=== PATIENT | female | born 1985 | race African-American/Black ===

== ENCOUNTER 2018-11-21 09:46 | Emergency (ER) | payer SELFPAY ==
[~2018-11-21] VITALS: Ht 177.8 cm; Wt 86.0 kg
[2018-11-21] MEDS ORDERED: SODIUM CHLORIDE 0.9% 1,000 ML IV ONE (10:15)
[2018-11-21 12:06] LABS: BASOPHILS % 0.1 % (0.0-2.0); HEMATOCRIT. 33.9 % (36.0-48.0); HEMOGLOBIN. 11.3 g/dL (12.0-16.0); LYMPHOCYTES % 7.5 % (20.0-50.0); MEAN CORPUSCULAR HEMOGLOBIN 27.2 pg (28.0-32.0); MEAN CORPUSCULAR VOLUME 81.5 fL (81.0-99.0); MEAN PLATELET VOLUME 8.5 fl (7.4-10.4); MONOCYTES % 6.7 % (2.0-8.0); NEUTROPHILS % 85.7 % (40.0-76.0); PLATELET 211 x1000/uL (130-400); RED BLOOD CELL COUNT 4.16 mill/uL (4.2-5.4); RED CELL DISTRIBUTION WIDTH 17.4 % (11.6-14.6)
[2018-11-21 12:13] LABS: CHLORIDE 98 mEq/L (98-107)
[2018-11-21 12:22] LABS: INR 1.2; PROTHROMBIN TIME 12.4 sec (9.1-11.1)
[2018-11-21 14:23] LABS: CLARITY URINE CLEAR (CLEAR); COLOR URINE YELLOW (YELLOW); KETONES URINE NEGATIVE (NEGATIVE); LEUKOCYTE ESTERASE URINE NEGATIVE (NEGATIVE); NITRITE URINE NEGATIVE (NEGATIVE); OCCULT BLOOD URINE NEGATIVE (NEGATIVE); PH URINE 6.5 (4.5-8.0); PROTEIN URINE TRACE (NEGATIVE); SPECIFIC GRAVITY URINE 1.011 (1.005-1.030); UROBILINOGEN URINE 0.2 E.U./dL (0.2-1.0)
[2018-11-21 15:00] VITALS: BP 112/66
== END 2018-11-21 15:00 | disposition home or self-care (01) ==
LOC: ER 09:46
DX: R55 Syncope and collapse (principal); S09.90XA Unspecified injury of head, initial encounter; R05 Cough; I51.7 Cardiomegaly; W01.0XXA Fall on same level from slipping, tripping and stumbling without subsequent striking against object, initial encounter; Y93.89 Activity, other specified; Y92.89 Other specified places as the place of occurrence of the external cause
CPT/HCPCS: 36415; 70450; 71045; 72125; 80053; 81003; 81025; 83880; 84484; 85025; 85610; 93005; 96360; 99284; J7030